=== PATIENT | male | born 1960 | race American Indian/Alaskan Native ===

== ENCOUNTER 2017-02-21 09:43 | Emergency (ER) | payer SELFPAY ==
[2017-02-21 10:23] LABS: Hematocrit 43.2 % (35.5-45.6); Hemoglobin 14.6 gm/dl (11.8-15.2); Mean Corpuscular HGB Conc 34 % (32-34); Mean Corpuscular Hemoglobin 32 pg (28-32); Mean Corpuscular Volume 94 fl (84-94); Platelet Count 153 K/mm3 (140-440); Red Blood Count 4.61 M/mm3 (3.65-5.03); Red Cell Distribution Width 13.3 % (13.2-15.2); White Blood Count 7.7 K/mm3 (4.5-11.0)
[2017-02-21 10:50] LABS: Alanine Aminotransferase 21 units/L (7-56); Albumin 4.2 g/dL (3.9-5); Albumin/Globulin Ratio 1.4 %; Alkaline Phosphatase 67 units/L (35-129); Anion Gap 17 mmol/L; BUN/Creatinine Ratio 14; Blood Urea Nitrogen 13 mg/dL (9-20); Carbon Dioxide 27 mmol/L (22-30); Chloride 101.2 mmol/L (98-107); Glucose 215 mg/dL (75-100); Lipase 171 units/L (13-60); Potassium 4.2 mmol/L (3.6-5.0); Sodium 141 mmol/L (137-145); Total Protein 7.3 g/dL (6.3-8.2)
--- NOTE | 2017-02-21 11:10 | Emergency Department Report ---
ED General Adult HPI - General Chief complaint: Abdominal Pain Stated complaint: LEFT SIDE ABD PAIN Time Seen by Provider: 02/21/17 10:26 Source: patient, family, RN notes reviewed Mode of arrival: Wheelchair Limitations: No Limitations - History of Present Illness Initial comments: This is a 56-year-old male who was previously unknown to this provider. His primary care doctor is Dr. Perez He has a past medical history of diabetes. He denies history of abdominal surgeries. He presents to the ER with left flank pain. It started this morning. It was associated with nausea. It was very sharp and intense. It did not radiate anywhere. Has no exacerbating or relieving factors. It is now resolved. The patient has no complaints at this time. He denies headache, neck pain, chest pain, abdominal pain, shortness of breath, leg pain, leg swelling, testicular pain, irritative, obstructive urinary symptoms. Patient does report multiple flights within the past few months, however he reports that he gets up at least once an hour, and always walks around. He is very adamant that he has no chest pain, shortness of breath, lightheadedness or syncope. -: Sudden Location: abdomen, left Radiation: non-radiation Consistency: now resolved Improves with: none Worsens with: none Associated Symptoms: denies other symptoms, nausea/vomiting - Related Data Previous Rx's Medication Instructions Recorded Last Taken Type Ketorolac [Toradol] 10 mg PO Q6H PRN #20 tablet 02/21/17 Unknown Rx Ondansetron [Zofran Odt] 4 mg PO Q8HR PRN #20 tab.rapdis 02/21/17 Unknown Rx Tamsulosin [Flomax] 0.4 mg PO QDAY #30 cap 02/21/17 Unknown Rx Allergies Allergy/AdvReac Type Severity Reaction Status Date / Time No Known Allergies Allergy Unverified 02/21/17 09:55 ED Review of Systems ROS: Stated complaint: LEFT SIDE ABD PAIN Other details as noted in HPI Constitutional: denies: fever Eyes: denies: eye discharge ENT: denies: epistaxis Respiratory: denies: cough Cardiovascular: denies: chest pain Gastrointestinal: abdominal pain, nausea Genitourinary: denies: urgency, dysuria, testicular pain Musculoskeletal: back pain Neurological: denies: weakness ED Past Medical Hx - Past Medical History Previous Medical History?: Yes Hx Hypertension: Yes Hx Diabetes: Yes - Surgical History Past Surgical History?: No - Social History Smoking Status: Never Smoker Substance Use Type: None - Medications Home Medications: Home Medications Medication Instructions Recorded Confirmed Last Taken Type Ketorolac [Toradol] 10 mg PO Q6H PRN #20 tablet 02/21/17 Unknown Rx Ondansetron [Zofran Odt] 4 mg PO Q8HR PRN #20 tab.rapdis 02/21/17 Unknown Rx Tamsulosin [Flomax] 0.4 mg PO QDAY #30 cap 02/21/17 Unknown Rx ED Physical Exam - General Limitations: No Limitations General appearance: alert, in no apparent distress - Head Head exam: Present: atraumatic, normocephalic - Eye Eye exam: Present: normal appearance, EOMI - ENT ENT exam: Present: normal exam, normal orophraynx, mucous membranes moist, normal external ear exam - Neck Neck exam: Present: normal inspection, full ROM - Respiratory Respiratory exam: Present: normal lung sounds bilaterally. Absent: respiratory distress - Cardiovascular Cardiovascular Exam: Present: regular rate, normal rhythm, normal heart sounds. Absent: systolic murmur, diastolic murmur, rubs, gallop - GI/Abdominal GI/Abdominal exam: Present: soft, normal bowel sounds. Absent: distended, tenderness, guarding, rebound, rigid, pulsatile mass - Rectal Rectal exam: Present: deferred - Extremities Exam Extremities exam: Present: normal inspection, full ROM, normal capillary refill , other (negative palpable cord. Negative Homans sign). Absent: pedal edema, joint swelling, calf tenderness - Back Exam Back exam: Present: normal inspection, full ROM. Absent: tenderness, CVA tenderness (R), paraspinal tenderness, vertebral tenderness - Neurological Exam Neurological exam: Present: alert, oriented X3, normal gait, other (Extraocular movements intact. Tongue midline. No facial droop. Facial sensation intact to light touch in the V1, V2, V3 distribution bilaterally. 5 and 5 strength in 4 extremities.. Sensation is intact to light touch in 4 extremities.). Absent : motor sensory deficit - Psychiatric Psychiatric exam: Present: normal affect, normal mood - Skin Skin exam: Present: warm, dry, intact, normal color. Absent: rash ED Course Vital Signs 02/21/17 02/21/17 02/21/17 09:55 11:35 12:19 Temperature 98.1 F 100.0 F H Pulse Rate 42 L 88 Respiratory 19 18 16 Rate Blood Pressure 126/72 Blood Pressure 132/82 [Left] O2 Sat by Pulse 100 100 100 Oximetry - Reevaluation(s) Reevaluation #1: 02/21/17 11:49 Differential diagnosis, including but not limited to: GERD, gastritis, pancreatitis, resolved renal colic Assessment and plan: 56-year-old male with resolved left-sided flank pain. He is afebrile with reassuring vital signs. On physical exam and by EKG, patient has a heart rate in the 80s to, 90s. Low risk by well's criteria, highly doubt pulmonary embolus given lack of chest pain, shortness of breath and hypoxia. He has no complaints at this time. He declines pain medication at this time. Most likely resolved renal colic. Urinalysis pending. Noncontrast CT scan of the abdomen and pelvis is pending. Elevated lipases appreciated, patient clinically has no abdominal tenderness at this time, think acute pancreatitis is unlikely. Reevaluation #2: 02/21/17 12:23 As expected, CT scan demonstrates stone in the bladder. Patient remains asymptomatic and has no complaints at this time. Patient specifically denies subjective fever, chills, flank pain, urinary symptoms. Patient is given a copy of his CT scan report as well as laboratory studies. He will be discharged with prescription for as needed pain medication, nausea medication, and he is instructed to follow up with outpatient neurology. Return precautions reviewed. ED Medical Decision Making - Lab Data Result diagrams: 02/21/17 10:01 02/21/17 10:01 Vital Signs 02/21/17 02/21/17 09:55 11:35 Temperature 98.1 F Pulse Rate 42 L Respiratory 19 18 Rate Blood Pressure 126/72 O2 Sat by Pulse 100 100 Oximetry Lab Results 02/21/17 02/21/17 Range/Units 10:01 10:01 WBC 7.7 (4.5-11.0) K/mm3 RBC 4.61 (3.65-5.03) M/mm3 Hgb 14.6 (11.8-15.2) gm/dl Hct 43.2 (35.5-45.6) % MCV 94 (84-94) fl MCH 32 (28-32) pg MCHC 34 (32-34) % RDW 13.3 (13.2-15.2) % Plt Count 153 (140-440) K/mm3 Lymph % (Auto) Thermodynamics Teacher Add Manual Diff Complete Total Counted 100 Seg Neutrophils % Thermodynamics Teacher Seg Neuts % (Manual) 23.0 L (40.0-70.0) % Band Neutrophils % 0 % Lymphocytes % (Manual) 67.0 H (13.4-35.0) % Reactive Lymphs % (Man) 0 % Monocytes % (Manual) 10.0 H (0.0-7.3) % Eosinophils % (Manual) 0 (0.0-4.3) % Basophils % (Manual) 0 (0.0-1.8) % Metamyelocytes % 0 % Myelocytes % 0 % Promyelocytes % 0 % Blast Cells % 0 % Nucleated RBC % Not Reportable Seg Neutrophils # Man 1.8 (1.8-7.7) K/mm3 Band Neutrophils # 0.0 K/mm3 Lymphocytes # (Manual) 5.2 (1.2-5.4) K/mm3 Abs React Lymphs (Man) 0.0 K/mm3 Monocytes # (Manual) 0.8 (0.0-0.8) K/mm3 Eosinophils # (Manual) 0.0 (0.0-0.4) K/mm3 Basophils # (Manual) 0.0 (0.0-0.1) K/mm3 Metamyelocytes # 0.0 K/mm3 Myelocytes # 0.0 K/mm3 Promyelocytes # 0.0 K/mm3 Blast Cells # 0.0 K/mm3 WBC Morphology Not Reportable Hypersegmented Neuts Not Reportable Hyposegmented Neuts Not Reportable Hypogranular Neuts Not Reportable Smudge Cells Not Reportable Toxic Granulation Not Reportable Toxic Vacuolation Not Reportable Dohle Bodies Not Reportable Pelger-Huet Anomaly Not Reportable Sherif Rods Not Reportable Platelet Estimate Not Reportable Clumped Platelets Not Reportable Plt Clumps, EDTA Not Reportable Large Platelets Not Reportable Giant Platelets Not Reportable Platelet Satelliting Not Reportable Plt Morphology Comment Not Reportable RBC Morphology Not Reportable Dimorphic RBCs Not Reportable Polychromasia Not Reportable Hypochromasia Not Reportable Poikilocytosis Not Reportable Anisocytosis Few Microcytosis Not Reportable Macrocytosis Not Reportable Spherocytes Not Reportable Pappenheimer Bodies Not Reportable Sickle Cells Not Reportable Target Cells Not Reportable Tear Drop Cells Not Reportable Ovalocytes Not Reportable Helmet Cells Not Reportable [place]-Dickens Bodies Not Reportable [place]ellerose Rings Not Reportable Isis Cells Not Reportable Bite Cells Not Reportable Crenated Cell Not Reportable Elliptocytes Not Reportable Acanthocytes (Spur) Not Reportable Rouleaux Not Reportable Hemoglobin C Crystals Not Reportable Schistocytes Not Reportable Malaria parasites Not Reportable Abdon Bodies Not Reportable Hem Pathologist Commnt No Sodium 141 (137-145) mmol/L Potassium 4.2 (3.6-5.0) mmol/L Chloride 101.2 (98-107) mmol/L Carbon Dioxide 27 (22-30) mmol/L Anion Gap 17 mmol/L BUN 13 (9-20) mg/dL Creatinine 0.9 (0.8-1.5) mg/dL Estimated GFR > 60 ml/min BUN/Creatinine Ratio 14 % Glucose 215 H (75-100) mg/dL Calcium 9.0 (8.4-10.2) mg/dL Total Bilirubin 0.40 (0.1-1.2) mg/dL AST 18 (5-40) units/L ALT 21 (7-56) units/L Alkaline Phosphatase 67 (35-129) units/L Total Protein 7.3 (6.3-8.2) g/dL Albumin 4.2 (3.9-5) g/dL Albumin/Globulin Ratio 1.4 % Lipase 171 H (13-60) units/L - EKG Data -: EKG Interpreted by Ma - EKG Data 02/21/17 11:48 Sinus, 94 bpm, ventricular bigeminy, abnormal EKG, not morphologically consistent with ST elevation myocardial infarction. - Radiology Data Radiology results: pending Critical care attestation.: If time is entered above; I have spent that time in minutes in the direct care of this critically ill patient, excluding procedure time. ED Disposition Clinical Impression: Renal colic on left side Disposition: DC-01 TO HOME OR SELFCARE Is pt being admited?: No Does the pt Need Aspirin: No Condition: Stable Instructions: Renal Colic (ED) Additional Instructions: EKG demonstrated nonspecific abnormalities. Follow up with a mess attendant for this within the next 2-3 weeks. Laboratory studies demonstrated elevated lipase level. Avoid consumption of alcohol and heavy/spicy foods. Follow-up with your primary care doctor for this within the next 2 weeks. Take the pain medication, nausea medication as needed/directed. Take the Flomax medication at night as directed. When urinating, urinating into a strainer or catcher, to catch the kidney stone. please follow-up with a urologist within the next 3-4 weeks. Return to the ER right away with new pain , worsened pain, migration of pain, fevers, chills, calm confusion, intractable nausea or vomiting, inability to tolerate liquid feeds. Dr. Murray is a local urology specialist Prescriptions: Ketorolac [Toradol] 10 mg PO Q6H PRN #20 tablet PRN Reason: Pain Ondansetron [Zofran Odt] 4 mg PO Q8HR PRN #20 tab.rapdis PRN Reason: Nausea Tamsulosin [Flomax] 0.4 mg PO QDAY #30 cap Referrals: [facility] [Provider Group] - 3-5 Days [facility] [Provider Group] - 3-5 Days VICTOR HUGO FISCHER MD [Staff Physician] - 3-5 Days PRIMARY CAREMD [Primary Care Provider] - 3-5 Days JOHNSON MCNALLY MD [Staff Physician] - 3-5 Days
--- NOTE | 2017-02-21 11:40 | Cat Scan Report ---
CT ABDOMEN AND PELVIS WITHOUT CONTRAST: 02/21/17 09:43:00 CLINICAL:Left flank pain which has resolved. However, elevated lipase. TECHNIQUE: Volumetric acquisition and 1.25 millimeter scan reconstructions from the lung bases through the pelvis. The study was performed without oral contrast. FINDINGS: Abdomen: Normal liver size, contour and density. No liver mass. Normal gallbladder and bile ducts. Normal stomach, duodenum, pancreas and spleen. No signs of acute or chronic pancreatitis. Normal adrenal glands. Small bilateral renal cysts. A 1.5 cm cyst in the midportion of the right kidney and a 1.8 cm left upper pole renal cyst. No renal or ureteral calculi are identified. However, mild distention of the left renal pelvis. No perinephric stranding, enlargement of the kidney or left ureteral dilatation. The right renal collecting system and ureter are normal. No ascites and no pneumoperitoneum. The small bowel and colon are normal. The appendix is normal. No ascites and no pneumoperitoneum. Pelvis: A 2 mm calculus in the dependent portion of the urinary bladder to the right of midline. Urinary bladder is otherwise normal. Normal prostate and seminal vesicles. On the rectum and sigmoid colon. IMPRESSION: 1. Recent stone passage with a 2 mm calculus in the urinary bladder and a minimally dilated left renal pelvis. 2. No other urinary calculi are identified. 3. No other significant findings. Specifically, no signs of necrotizing.
[2017-02-21 11:44] LABS: Basophils % (Manual) 0 % (0.0-1.8); Blastocytes % (Manual) 0 %; Eosinophils % (Manual) 0 % (0.0-4.3)
[2017-02-21 11:45] LABS: Anisocytosis Few; Diff Status Complete
[2017-02-21 12:12] LABS: Bilirubin,Urine NEG (Negative); Blood,Urine LG (Negative); Ketones,Urine 20 mg/dL (Negative); Leukocyte Esterase,Urine NEG (Negative); Mucus,Urine FEW /HPF; Nitrite,Urine NEG (Negative); Protein,Urine <15 mg/dL mg/dL (Negative); Urobilinogen,Urine < 2.0 mg/dL (<2.0)
[2017-02-21 12:20] VITALS: BP 132/82
== END 2017-02-21 12:50 | disposition home or self-care (01) ==
LOC: ED 09:43
DX: N23 Unspecified renal colic (principal); I10 Essential (primary) hypertension; E11.9 Type 2 diabetes mellitus without complications
CPT/HCPCS: 36415; 74176; 80053; 81001; 83690; 85007; 85025; 93005; 93010